=== PATIENT | female | born 1990 | race Caucasian/White ===

== ENCOUNTER 2016-04-04 17:15 | Outpatient (CLI) | payer MEDICAID ==
[~2016-04-04] VITALS: Ht 154.9 cm; Wt 88.2 kg
[~2016-04-04 17:15] MED LIST: AC500T PO; ACET1TAB43 PO; ACHYD1T PO; BC PILL PO; BCP; CEFU250S PO; CEPH500C PO; HYDR-707 PO; HYOS0.1216 PO; IBP800T PO; IBUP-1780 PO; MUPI1OIN5 NS; NITR-65 PO; OCP; ONDA-42 SL; ONDA8TAB13 PO; ONDAN4ODT PO; PENI500T PO; PNT40TEC PO; PREN-37 PO; PREN1TAB39 PO; PREN1TAB71 PO; PROM25TA14 PO
[2016-04-04 17:30] VITALS: BP 133/87
[2016-04-04] MEDS ORDERED: BETAMETHASONE ACE/NA PHOS 6 MG/ML (CELESTONE SOLUSPAN) ONE (18:50)
[2016-04-04] MEDS ORDERED: D5 LR IV SOLUTION 1,000 ML IV ONE (18:50)
[2016-04-04] MEDS ORDERED: BETAMETHASONE ACE/NA PHOS 6 MG/ML (CELESTONE SOLUSPAN) IM SCH (19:00)
[2016-04-04] MEDS: D5 LR IV SOLUTION 1,000 ML IV SCH ×2 (19:05→21:15)
[2016-04-04] MEDS ORDERED: CATHETER FLUSH 10 ML SYR IV PRN (19:15)
[2016-04-04 19:34] LABS: BASOPHILS % (AUTO) 0 % (0-10); EOSINOPHILS # (AUTO) 0.1 10^3/uL (0.0-0.3); EOSINOPHILS % (AUTO) 1 % (0-10); LYMPHOCYTES # (AUTO) 1.1 X 10^3 (1.0-4.0); LYMPHOCYTES % (AUTO) 14 % (12-44); MEAN CORPUSCULAR HEMOGLOBIN 34 PG (25-34); MEAN CORPUSCULAR HGB CONC 34 G/DL (32-36); MEAN CORPUSCULAR VOLUME 99 FL (80-99); MEAN PLATELET VOLUME 9.6 FL (7.4-10.4); MONOCYTES # (AUTO) 0.4 X 10^3 (0.0-1.0); MONOCYTES % (AUTO) 5 % (0-12); NEUTROPHILS # (AUTO) 6.5 X 10^3 (1.8-7.8); NEUTROPHILS % (AUTO) 80 % (42-75); PLATELET COUNT 254 10^3/uL (130-400); RED BLOOD COUNT 3.48 10^6/uL (4.35-5.85); RED CELL DISTRIBUTION WIDTH 12.6 % (10.0-14.5); WHITE BLOOD COUNT 8.2 10^3/uL (4.3-11.0)
[2016-04-04 19:35] VITALS: BP 129/90
[2016-04-04 22:02] VITALS: BP 129/71
[2016-04-05] MEDS: D5 LR IV SOLUTION 1,000 ML IV SCH ×2 (01:15→05:24)
[2016-04-05 01:17] VITALS: BP 121/66
[2016-04-05 05:16] VITALS: BP 130/70
[2016-04-05] MEDS ORDERED: FLU TRIvalent (5 YOA+) 2016-17 (AFLURIA) 0.5 ML IM ONE (06:45)
--- NOTE | 2016-04-05 07:37 | History & Physical ---
History and Physical this patient is a 25-year-old white female with an EDC of 3 [phone] putting her at 32 weeks gestation. She presented with complaint of contractions pain and pressure. She was nubia 4-6 times an hour. She was hydrated and observed in her contractions have gradually resolved. Her cervix is shown no change since admission. She was given the first dose of 2 doses of betamethasone. She denies rupture membranes or bleeding. This morning she feels like her contractions have completely resolved. Allergies are none Medications are vitamins Past medical history, past surgical history, obstetric history, family history, and social histories are per the antepartum record HEENT exam is normal Neck is supple no lymphadenopathy no thyromegaly Abdomen is gravid soft nontender nondistended Streaming show clubbing or cyanosis. There is no Homans sign. Pelvic exam per the admitting nurse showed a cervix 3 cm dilated that showed no change on serial exams. Vital Signs Date Time Temp Pulse Resp B/P Pulse Ox O2 Delivery O2 Flow Rate FiO2 04/05/16 05:16 96.8 87 20 130/70 Room Air 04/05/16 01:17 97.4 90 20 121/66 Room Air 04/04/16 22:02 90 20 129/71 Room Air 04/04/16 19:35 97.9 90 20 129/90 Room Air 04/04/16 17:30 99.2 103 20 133/87 Room Air vital signs are stable. Patient afebrile. monitor shows normal heart rate pattern with one episode of a deceleration associated with contraction. Has not recurred. Otherwise the heart rate pattern is normal reassuring and reactive. There frequent cells there are no D cells and the one mentioned.. Assessment and plan 32 week with contractions/ labor that has now resolved. We will allow discharge home with clinic. Patient precautions for return to clinic for any signs symptoms and indications of return of labor labor at 32 weeks gestation Allergies and Home Medications Allergies Coded Allergies: No Known Drug Allergies (Verified , 09/03/06) Home Medications Nitrofurantoin Monohyd/M-Cryst 100 Mg Capsule 1 TAB PO BID (Reported) Vit/Iron Fumarate/FA 1 Each Tablet 1 EACH PO DAILY (Reported) ANISHA HERNÁNDEZ MD Apr 05, 2016 7:37 am
== END 2016-04-05 07:54 | disposition home or self-care (01) ==
LOC: LDRP 17:15 → WSo 17:15
PROVIDERS: ATTEND Obstetrics & Gynecology
DX: O60.03 Preterm labor without delivery, third trimester (principal); Z3A.32 32 weeks gestation of pregnancy; Z23 Encounter for immunization
CPT/HCPCS: 36415; 85025; 90471; 96360; 96361; 96372; 99214

== ENCOUNTER 2016-04-05 19:52 | Outpatient (CLI) | payer MEDICAID ==
[2016-04-05] MEDS ORDERED: BETAMETHASONE ACE/NA PHOS 6 MG/ML (CELESTONE SOLUSPAN) ONE (19:53)
[2016-04-05] MEDS ORDERED: BETAMETHASONE ACE/NA PHOS 6 MG/ML (CELESTONE SOLUSPAN) IM SCH (20:00)
--- NOTE | 2016-04-08 10:58 | Physician Query-Final Dx ---
RAYA SILVA 04/08/16 1058: Clinic Account Progress/Dx Physician Query: Please give diagnosis Date of Service Apr 05, 2016 at 19:52 ANISHA HERNÁNDEZ MD 04/08/16 1159: Clinic Account Progress/Dx DIAGNOSIS: Diagnosis labor RAYA SILVA Apr 08, 2016 10:58 ANISHA HERNÁNDEZ MD Apr 08, 2016 11:59
== END 2016-04-05 20:00 | disposition home or self-care (01) ==
LOC: WSo 19:52
PROVIDERS: ATTEND Obstetrics & Gynecology
DX: O60.00 Preterm labor without delivery, unspecified trimester (principal)
CPT/HCPCS: 96372

== ENCOUNTER 2016-04-14 13:49 | Outpatient (CLI) | payer MEDICAID ==
[~2016-04-14] VITALS: Ht 154.9 cm; Wt 90.7 kg
[2016-04-14 14:00] VITALS: BP 119/66
[2016-04-14 17:40] VITALS: BP 108/67
--- NOTE | 2016-04-15 12:00 | Physician Query-Final Dx ---
RAYA SILVA 04/15/16 1200: Clinic Account Progress/Dx Physician Query: Please give diagnosis Date of Service Apr 14, 2016 at 13:49 ANISHA HERNÁNDEZ MD 04/16/16 1320: Clinic Account Progress/Dx DIAGNOSIS: Diagnosis false labor RAYA SILVA Apr 15, 2016 12:00 ANISHA HERNÁNDEZ MD Apr 16, 2016 13:20
[2016-05-08] MEDS ORDERED: IBUP-1780 PO (07:45)
[2016-05-08] MEDS ORDERED: DOCU100C37 PO (07:45)
[2016-05-08] MEDS ORDERED: OXYC-465 PO (07:45)
== END 2016-04-14 18:10 | disposition home or self-care (01) ==
LOC: LDRP 13:49 → WSo 13:49
PROVIDERS: ATTEND Obstetrics & Gynecology
DX: O47.03 False labor before 37 completed weeks of gestation, third trimester (principal); Z3A.33 33 weeks gestation of pregnancy
CPT/HCPCS: 99214

== ENCOUNTER 2016-05-04 19:55 | Outpatient (CLI) | payer MEDICAID ==
[~2016-05-04] VITALS: Ht 154.9 cm; Wt 95.7 kg
[2016-05-04 19:55] VITALS: BP 117/70
--- NOTE | 2016-05-06 15:16 | Physician Query-Final Dx ---
RAYA SILVA 05/06/16 1516: Clinic Account Progress/Dx Physician Query: Please give diagnosis Date of Service May 04, 2016 at 19:55 ANISHA HERNÁNDEZ MD 05/07/16 0824: Clinic Account Progress/Dx DIAGNOSIS: Diagnosis false labor RAYA SILVA May 06, 2016 15:16 ANISHA HERNÁNDEZ MD May 07, 2016 08:24
== END 2016-05-04 20:31 | disposition home or self-care (01) ==
LOC: LDRP 19:55 → WSo 19:55
PROVIDERS: ATTEND Obstetrics & Gynecology
DX: O47.03 False labor before 37 completed weeks of gestation, third trimester (principal); Z3A.36 36 weeks gestation of pregnancy
CPT/HCPCS: 99214

== ENCOUNTER 2016-05-07 16:10 | Inpatient (IN) | payer MEDICAID ==
[2016-05-07] VITALS (33 sets, daily range): BP systolic 88–147; BP diastolic 53–89
[~2016-05-07] VITALS: Ht 154.9 cm; Wt 95.7 kg
[2016-05-07] MEDS ORDERED: D5 LR IV SOLUTION 1,000 ML IV SCH (16:17)
[2016-05-07] MEDS ORDERED: MINERAL OIL CONCENTRATE 99.9% 15 ML UDC TOP PRN (16:30)
[2016-05-07] MEDS ORDERED: OXYTOCIN/NORMAL SALINE 500 ML IV SCH ×3 (16:30→16:48)
--- NOTE | 2016-05-07 16:54 | History & Physical ---
History and Physical this patient is a 25-year-old white female with a due date of 2716 seen in my clinic on this date and found to have nitrazine positive and fern positive discharge consistent with PROM. She's indicates that she feels less she been leaking for several days. She denies bleeding. She had a GBS negative culture after 35 weeks gestation. She does feel occasional contractions that seem to be increasing and lots of pressure. Cervical exam in clinic was between 45 cm dilated 70 percent effaced -1-0 station vertex presentation that was a palpable fore bag although there was pooling in the vaginal vault that was nitrazine positive and fern positive as well. Allergies are none Medications are vitamins Past medical history, past surgical history, obstetric history, family history, and social histories are per the antepartum record HEENT exam is normal Neck is supple no lymphadenopathy and no thyromegaly Abdomen is gravid soft nontender nondistended Extremities show clubbing cyanosis. There is no Homans sign. There is some pretibial pitting edema that is normal. Pelvic exam in clinic showed a cervix 4-5 cm dilated 70 percent efface 0 to -1 station with a palpable fore bag. Nitrazine was positive of the pooling in the vaginal vault on sterile speculum exam and fern was test was positive as well. Assessment and plan term at 37 weeks and 1 day in a patient with PROM of of uncertain duration. She is now admitted and will be managed in labor with anticipation of a vaginal delivery. 37-1/7 weeks gestation with PROM of uncertain duration, Allergies and Home Medications Allergies Coded Allergies: No Known Drug Allergies (Verified , 09/03/06) Home Medications Vit/Iron Fumarate/FA 1 Each Tablet 1 EACH PO DAILY (Reported) ANISHA HERNÁNDEZ MD May 07, 2016 4:54 pm
[2016-05-07] MEDS: D5 LR IV SOLUTION 1,000 ML IV SCH (17:00)
[2016-05-07] MEDS ORDERED: TETANUS,DIPTH,PERTUSS P/F (BOOSTRIX) 0.5 ML VIAL IM ONE (17:00)
[2016-05-07] MEDS ORDERED: MEASLES,MUMPS,RUBELLA 1 EA INJ SC ONE (17:00)
[2016-05-07 17:07] LABS: BASOPHILS % (AUTO) 0 % (0-10); EOSINOPHILS # (AUTO) 0.1 10^3/uL (0.0-0.3); EOSINOPHILS % (AUTO) 1 % (0-10); LYMPHOCYTES # (AUTO) 1.6 X 10^3 (1.0-4.0); LYMPHOCYTES % (AUTO) 18 % (12-44); MEAN CORPUSCULAR HEMOGLOBIN 33 PG (25-34); MEAN CORPUSCULAR HGB CONC 34 G/DL (32-36); MEAN CORPUSCULAR VOLUME 98 FL (80-99); MEAN PLATELET VOLUME 9.9 FL (7.4-10.4); MONOCYTES # (AUTO) 0.9 X 10^3 (0.0-1.0); MONOCYTES % (AUTO) 10 % (0-12); NEUTROPHILS # (AUTO) 6.5 X 10^3 (1.8-7.8); NEUTROPHILS % (AUTO) 71 % (42-75); PLATELET COUNT 290 10^3/uL (130-400); RED BLOOD COUNT 3.71 10^6/uL (4.35-5.85); RED CELL DISTRIBUTION WIDTH 12.7 % (10.0-14.5); WHITE BLOOD COUNT 9.1 10^3/uL (4.3-11.0)
[2016-05-07] MEDS ORDERED: fentaNYL INJECTION 100 MCG/2 ML AMP ONE (17:11)
[2016-05-07] MEDS ORDERED: LACTATED RINGERS 1,000 ML IV ONE ×3 (17:11→19:33)
[2016-05-07] MEDS ORDERED: BUPIVACAINE 0.25% 30 ML (SENSORCAINE) VIAL ONE (17:12)
[2016-05-07] MEDS ORDERED: LIDOCAINE PF 2% 10 ML (XYLOCAINE) AMP ONE (17:12)
[2016-05-07] MEDS ORDERED: SUFENTA 0.6MCG/ML BUPIVA 0.125 100 ML ONE (17:12)
[2016-05-07] MEDS ORDERED: AMPICILLIN INJECTION 2,000 MG in NS (IVPB) 50 ML IV ONE (17:30)
[2016-05-07] MEDS ORDERED: AMPICILLIN 2000 MG INJECTION (IM/IV) ONE (17:50)
[2016-05-07] MEDS ORDERED: NALOXONE 0.4 MG/ML 1 ML (NARCAN) VIAL IV PRN (19:45)
[2016-05-07] MEDS ORDERED: BUPIVACAINE 0.25% 30 ML (SENSORCAINE) VIAL INJ ONE (19:45)
[2016-05-07] MEDS ORDERED: ONDANSETRON 4 MG/2 ML (SDV) Z0FRAN IV PRN (19:45)
[2016-05-07] MEDS ORDERED: fentaNYL INJECTION 100 MCG/2 ML AMP INJ ONE (19:45)
[2016-05-07] MEDS ORDERED: EPIDURAL (SUFENTA 0.6MCG/ML BUPIVA 0.125%) 100 ML BAG EPI PRN (19:45)
[2016-05-07] MEDS ORDERED: LIDOCAINE/EPI 1%-1:200,000 (XYLOCAINE) 30 ML VIAL ONE (20:49)
[2016-05-07] MEDS ORDERED: CATHETER FLUSH 10 ML SYR IV SCH (22:00)
[2016-05-07] MEDS: BENZOCAINE/MENTHOL (DERMOPLAST) 56 ML CAN TP PRN (23:24)
[2016-05-07] MEDS: KETOROLAC 30 MG/ML VIAL IV SCH (23:24)
[2016-05-07] MEDS: DOCUSATE SODIUM 100 MG (COLACE) CAP PO SCH (23:24)
[2016-05-08] MEDS: D5 LR IV SOLUTION 1,000 ML IV SCH (01:40)
[2016-05-08] MEDS: oxyCODONE/APAP 10/325MG (PERCOCET 10) TABLET PO PRN ×2 (02:33→07:57)
[2016-05-08 04:45] VITALS: BP 110/71
[2016-05-08] MEDS ORDERED: IBUPROFEN 800 MG (MOTRIN) TAB PO ONE ×2 (06:43→12:20)
[2016-05-08] MEDS: IBUPROFEN 800 MG (MOTRIN) TAB PO SCH ×4 (06:49→23:54)
[2016-05-08] MEDS: KETOROLAC 30 MG/ML VIAL IV SCH ×2 (06:49→07:22)
--- NOTE | 2016-05-08 07:44 | Progress Note-Standard ---
Standard Progress Note Progress Notes/Assess & Plan Progress/Assessment & Plan this patient is without complaint. She is ambulating, voiding, tolerating by mouth well, denies chest pain, denies shortness of breath, denies nausea vomiting, has good pain control. Vital Signs Date Time Temp Pulse Resp B/P Pulse Ox O2 Delivery O2 Flow Rate FiO2 05/08/16 04:45 97.8 88 20 110/71 97 Room Air 05/07/16 23:24 97.6 95 20 108/73 96 Room Air 05/07/16 22:50 98.1 98 20 98/63 97 Room Air 05/07/16 22:21 104 20 93/55 Room Air 05/07/16 22:20 98.6 113 20 88/56 Room Air 05/07/16 22:00 104 20 105/57 Room Air 05/07/16 21:45 98.4 107 20 115/55 97 Room Air 05/07/16 21:30 98.6 114 20 126/59 97 Room Air 05/07/16 21:17 117 20 141/58 Room Air 05/07/16 21:00 109 20 124/68 Room Air 05/07/16 20:45 100 20 113/53 Room Air 05/07/16 20:30 98.7 108 20 114/89 97 Room Air 05/07/16 20:15 92 20 110/59 100 Room Air 05/07/16 20:00 97.9 85 20 119/65 97 Room Air 05/07/16 19:44 88 20 119/63 97 Room Air 05/07/16 19:41 92 20 111/64 96 Room Air 05/07/16 19:38 82 20 112/62 96 Room Air 05/07/16 19:35 88 20 112/59 98 Room Air 05/07/16 19:32 87 20 105/56 96 Room Air 05/07/16 19:29 96 20 129/61 96 Room Air 05/07/16 19:26 107 20 135/60 97 Room Air 05/07/16 19:23 125 20 131/58 97 Room Air 05/07/16 19:20 108 20 147/70 95 Room Air 05/07/16 19:17 112 20 130/75 95 Room Air 05/07/16 19:14 114 20 127/80 95 Room Air 05/07/16 19:11 116 20 125/82 97 Room Air 05/07/16 18:45 95 20 102/56 Room Air 05/07/16 18:30 96 20 108/55 Room Air 05/07/16 18:15 101 20 144/78 Room Air 05/07/16 18:00 102 20 107/59 Room Air 05/07/16 17:45 101 20 118/72 Room Air 05/07/16 17:30 96 20 124/63 Room Air 05/07/16 17:15 106 20 110/65 Room Air 05/07/16 17:00 96 20 119/69 Room Air I & O 05/08/16 07:00 Output Total 0 ml Balance 0 ml vital signs are stable. Patient afebrile. Fundus is firm below the umbilicus nontender. Extreme show no clubbing cyanosis. There is no Homans sign. Assessment and plan day number 1 status post return spontaneous vaginal delivery doing well. Plan is for discharge home tomorrow ANISHA HERNÁNDEZ MD May 08, 2016 7:44 am
[2016-05-08] MEDS ORDERED: OXYC-465 PO (07:45)
[2016-05-08] MEDS ORDERED: DOCU100C37 PO (07:45)
[2016-05-08] MEDS ORDERED: IBUP-1780 PO (07:45)
--- NOTE | 2016-05-08 07:46 | Discharge Instructions ---
Discharge Instructions Discharge Medications New, Converted or Re-Newed RX: RX on Chart Patient Instructions Patient Instructions: as directed Return to The Hospital For: as directed Activity & Diet Discharge Diet: No Restrictions Activity as Tolerated: No Orders-Post D/C & Referrals Follow Up Appt: Call to make follow up appt. for patient in 4 weeks. Activity Per routine post vaginal delivery instructions. Please call in RX to patient pharmacy. Diet as tolerated Patient may shower or tub bathe as desired. ANISHA HERNÁNDEZ MD May 08, 2016 7:46 am
[2016-05-08 08:05] VITALS: BP 110/68
[2016-05-08] MEDS: DOCUSATE SODIUM 100 MG (COLACE) CAP PO SCH (08:06)
[2016-05-08 12:15] VITALS: BP 110/79
[2016-05-08 12:50] VITALS: BP 110/79
[2016-05-08 19:27] VITALS: BP 116/87
[2016-05-09 03:00] VITALS: BP 88/42
[2016-05-09] MEDS: IBUPROFEN 800 MG (MOTRIN) TAB PO SCH ×3 (05:58→17:03)
--- NOTE | 2016-05-09 07:44 | Progress Note-Standard ---
Standard Progress Note Progress Notes/Assess & Plan Progress/Assessment & Plan this patient is without complaint. She is ambulating, voiding, tolerating by mouth well, denies chest pain, denies shortness of breath, denies nausea vomiting, has good pain control. Vital Signs Date Time Temp Pulse Resp B/P Pulse Ox O2 Delivery O2 Flow Rate FiO2 05/08/16 04:45 97.8 88 20 110/71 97 Room Air 05/07/16 23:24 97.6 95 20 108/73 96 Room Air 05/07/16 22:50 98.1 98 20 98/63 97 Room Air 05/07/16 22:21 104 20 93/55 Room Air 05/07/16 22:20 98.6 113 20 88/56 Room Air 05/07/16 22:00 104 20 105/57 Room Air 05/07/16 21:45 98.4 107 20 115/55 97 Room Air 05/07/16 21:30 98.6 114 20 126/59 97 Room Air 05/07/16 21:17 117 20 141/58 Room Air 05/07/16 21:00 109 20 124/68 Room Air 05/07/16 20:45 100 20 113/53 Room Air 05/07/16 20:30 98.7 108 20 114/89 97 Room Air 05/07/16 20:15 92 20 110/59 100 Room Air 05/07/16 20:00 97.9 85 20 119/65 97 Room Air 05/07/16 19:44 88 20 119/63 97 Room Air 05/07/16 19:41 92 20 111/64 96 Room Air 05/07/16 19:38 82 20 112/62 96 Room Air 05/07/16 19:35 88 20 112/59 98 Room Air 05/07/16 19:32 87 20 105/56 96 Room Air 05/07/16 19:29 96 20 129/61 96 Room Air 05/07/16 19:26 107 20 135/60 97 Room Air 05/07/16 19:23 125 20 131/58 97 Room Air 05/07/16 19:20 108 20 147/70 95 Room Air 05/07/16 19:17 112 20 130/75 95 Room Air 05/07/16 19:14 114 20 127/80 95 Room Air 05/07/16 19:11 116 20 125/82 97 Room Air 05/07/16 18:45 95 20 102/56 Room Air 05/07/16 18:30 96 20 108/55 Room Air 05/07/16 18:15 101 20 144/78 Room Air 05/07/16 18:00 102 20 107/59 Room Air 05/07/16 17:45 101 20 118/72 Room Air 05/07/16 17:30 96 20 124/63 Room Air 05/07/16 17:15 106 20 110/65 Room Air 05/07/16 17:00 96 20 119/69 Room Air I & O 05/08/16 07:00 Output Total 0 ml Balance 0 ml vital signs are stable. Patient afebrile. Fundus is firm below the umbilicus nontender. Extreme show no clubbing cyanosis. There is no Homans sign. Assessment and plan day number 1 status post return spontaneous vaginal delivery doing well. Plan is for discharge home tomorrow May 09, 2016 Patient is without complaint. She is ambulating, voiding, tolerating by mouth well, has good pain control, and is requesting discharge home. Vital Signs Date Time Temp Pulse Resp B/P Pulse Ox O2 Delivery O2 Flow Rate FiO2 05/09/16 03:00 97.6 64 20 88/42 96 Room Air 05/08/16 19:27 98.4 71 20 116/87 97 Room Air 05/08/16 12:15 98.1 98 20 110/79 Room Air 05/08/16 12:15 98.1 98 20 110/79 Room Air 05/08/16 08:05 98.4 85 20 110/68 97 Room Air vital signs are stable. Patient is afebrile. Fundus is firm below the umbilicus and nontender. Extreme show clubbing cyanosis. There is no Homans sign. Assessment and plan day number 2 status post term spontaneous vaginal delivery. Plan is for discharge home with follow-up in clinic. If baby is not discharged patient will room in. Final Diagnosis 37-1/7 week spontaneous vaginal delivery ANISHA HERNÁNDEZ MD May 09, 2016 7:44 am
[2016-05-09 09:10] VITALS: BP 131/65
[2016-05-09] MEDS: DOCUSATE SODIUM 100 MG (COLACE) CAP PO SCH (09:18)
--- NOTE | 2016-05-09 09:36 | PROCEDURE REPORT ---
PROCEDURE PHYSICIAN: ANISHA HERNÁNDEZ DATE OF PROCEDURE: 05/07/2016 DATE OF DICTATION: 05/07/2016 The patient delivered by term spontaneous vaginal delivery of a viable female infant with Apgars of 8 and 9 at one and five minutes respectfully. Weight was 6 pounds 13 ounces. time was 2106. The patient delivered over a midline episiotomy that was performed at her request when she had pushed the baby down to the perineum and peritoneum would stretched no further and she was beginning to have tears and splits bilaterally, periurethrally. The episiotomy was performed under local and the baby delivered almost spontaneously after that. The was bulb suctioned on delivery of the head and again on completion of delivery. The cord when relatively pulseless, was doubly clamped, father cut the cord. The baby was passed to mom's abdomen. The baby had Apgars of 8 and 9 at one and five minutes respectfully, it was a female. time was 2106 and weight was 6 pounds 13 ounces. The cord bloods were obtained including a cord blood gas secondary to patient's history of unsure duration of membrane rupture. That is pending. Placenta delivered spontaneously Osorio. It was normal with a three-vessel cord and it was sent to pathology for permanent section secondary to indeterminate duration of rupture membranes. The perineum and vagina, rectum and cervix were examined and found intact except for the midline episiotomy that was repaired with a single suture of 3-0 Vicryl. Sponge and needle counts were correct on completion of delivery and repair. Estimated blood loss was around 150 mL. The patient tolerated the delivery and repair well and remained in the LDR to recover; the baby remained with the mom. Job ID: [id number] Dictated Date: 05/07/2016 21:24:24 Stable Hand Date: 05/09/2016 09:31:42 / wang
[2016-05-09] MEDS: BENZOCAINE/MENTHOL (DERMOPLAST) 56 ML CAN TP PRN (11:19)
[2016-05-09 16:55] VITALS: BP 129/85
[2016-05-09] MEDS ORDERED: TETANUS,DIPTH,PERTUSS P/F (BOOSTRIX) 0.5 ML VIAL IM ONE (16:56)
== END 2016-05-09 17:08 | disposition home or self-care (01) | DRG 775 ==
LOC: LDRP 16:10
PROVIDERS: ADMIT Obstetrics & Gynecology; ATTEND Obstetrics & Gynecology
PROC: 0W8NXZZ Division of Female Perineum, External Approach (ICD-10-PCS; principal; 2016-05-07)
PROC: 10E0XZZ Delivery of Products of Conception, External Approach (ICD-10-PCS; 2016-05-07)
DX: O42.92 Full-term premature rupture of membranes, unspecified as to length of time between rupture and onset of labor (principal); Z3A.37 37 weeks gestation of pregnancy; Z23 Encounter for immunization; Z37.0 Single live birth
CPT/HCPCS: 36415; 85025; 86850; 86900; 86901; 88307; 90715

== ENCOUNTER 2017-02-06 05:28 | Outpatient (CLI) | payer MEDICAID ==
[~2017-02-06] VITALS: Ht 154.9 cm; Wt 88.9 kg
[~2017-02-06 05:28] MED LIST changes: +DOCU100C37 PO; +OXYC-465 PO
[2017-02-06] MEDS ORDERED: FLUO20CA42 PO (14:06)
[2017-02-06] MEDS ORDERED: NORG1TAB14 PO (14:06)
== END 2017-02-06 14:26 ==
LOC: PREOP 05:28
PROVIDERS: ATTEND Obstetrics & Gynecology
DX: Z01.818 Encounter for other preprocedural examination (principal); N93.8 Other specified abnormal uterine and vaginal bleeding; D64.9 Anemia, unspecified

== ENCOUNTER 2017-02-12 11:11 | Day surgery (SDC) | payer SELFPAY ==
[~2017-02-12] VITALS: Ht 154.9 cm; Wt 88.9 kg
[~2017-02-12 11:11] MED LIST changes: +FLUO20CA42 PO; +NORG1TAB14 PO
--- OUTSIDE RECORDS SUMMARY | 2017-02-12 11:15 | XMS REPORT ---
Author Author KATELYN OCONNELL [facility] e[employer] Address Unknown Phone Unavailable Care Team Providers Care [employer] Packages Leak Tester Name Role Phone KATELYN OCONNELL CP Unavailable Allergies No Known Allergies Problems Problem Type Condition ICD-9 Code Onset Dates Condition Status Problem Rash and other nonspecific skin eruption 782.1 Active Assessment Dental examination V72.2 Active Problem Influenza with other respiratory manifestations 487.1 Active Problem Need for prophylactic vaccination and inoculation, Influenza V04.81 Active Problem Pediatric pre- visit for expectant mother V65.11 Active Problem Unspecified disorder of liver 573.9 Active Problem examination or test, unconfirmed V72.40 Active Problem Acute sinusitis, unspecified 461.9 Active Problem Unspecified local infection of skin and subcutaneous tissue 686.9 Active Medications No Known Medications Procedures Procedure Coding System Code Date INTRAORL-PERIAPICAL 1 FILM 60536 CPT-4 D0220 September 20, 2014 LTD ORAL EVALUATION - PROBLEM FOCUS CPT-4 D0140 September 20, 2014 Results No Known Results Summary Purpose eClinicalWorks Submission
--- OUTSIDE RECORDS SUMMARY | 2017-02-12 11:15 | XMS REPORT ---
Author Author SEDA Salgado [facility] Address Unknown Care Team Providers Care Organizational Consultant Name Role Phone SEDA Salgado Unavailable PROBLEMS Unknown Problems ALLERGIES Substance Reaction Event Type Date Status N.K.D.A. Unknown Non Drug Allergy Apr, Unknown SOCIAL HISTORY No smoking Hx information available PLAN OF CARE Activity Details Follow Up prn Reason:all upper teeth-fillings 1 hr. VITAL SIGNS Height 61 in 2016-04-03 Blood pressure systolic 114 mmHg 2016-04-03 Blood pressure diastolic 71 mmHg 2016-04-03 MEDICATIONS Medication Instructions Dosage Frequency Start Date End Date Duration Status Active RESULTS No Results PROCEDURES Procedure Date Ordered Related Diagnosis Body Site RESIN COMPOS - 3 SURFACES ANTERIOR Apr 03, 2016 IMMUNIZATIONS No Known Immunizations
--- OUTSIDE RECORDS SUMMARY | 2017-02-12 11:15 | XMS REPORT ---
Author MAITE Pandey [facility] eClinical[employer] Address Unknown Phone Unavailable Care Team Providers Care Slitter Helper Name Role Phone MAITE HERNANDEZ CP Unavailable Allergies No Known Allergies Problems Problem Type Condition ICD-9 Code Onset Dates Condition Status Problem Rash and other nonspecific skin eruption 782.1 Active Assessment TDAP DX V06.1 Active Problem Influenza with other respiratory manifestations [...] Medications Procedures Procedure Coding System Code Date SINGLE IMMUNIZATION ADMIN CPT-4 22090 Oct 22, 2014 TDAP (BOOSTRIX) CPT-4 89281 Oct 22, 2014 Results No Known Results Immunizations Vaccine Administration Date TDAP (BOOSTRIX) Oct 22, 2014 Summary Purpose eClinicalWorks Submission
--- OUTSIDE RECORDS SUMMARY | 2017-02-12 11:15 | XMS REPORT ---
Author Author SUGEY NORTON [facility] eClinical[employer] Address Unknown Phone Unavailable Care Team Providers Care Splicer Helper Name Role Phone SUGEY NORTON CP Unavailable Allergies, Adverse Reactions, Alerts Substance Reaction Event Type N.K.D.A. Info Not Available Non Drug Allergy Problems Problem Type Condition Code Onset Dates Condition Status Problem Rash and other nonspecific skin eruption 782.1 Active Assessment Otitis media, unspecified, left ear H66.92 Active Problem Influenza with other respiratory manifestations 487.1 Active Problem Need for prophylactic vaccination and inoculation, Influenza V04.81 Active Problem Pediatric pre- visit for expectant mother V65.11 Active Problem Unspecified disorder of liver 573.9 Active Problem examination or test, unconfirmed V72.40 Active Problem Acute sinusitis, unspecified 461.9 Active Problem Unspecified local infection of skin and subcutaneous tissue 686.9 Active Medications Medication Code System Code Instructions Start Date End Date Status Dosage Augmentin [facility] [address]-96 875-125 MG Orally every 12 hrs Jan 04, 2015 Jan 14, 2015 1 tablet Ibuprofen [facility] 0 May 03, 2011 by Oral route Procedures Procedure Coding System Code Date Office Visit, Est Pt., Level 3 CPT-4 98950 Jan 04, 2015 Vital Signs Date/Time: Jan 04, 2015 Temperature 97.6 F Weight 186.7 lbs Height 61 in BMI 35.27 Index Blood Pressure Diastolic 72 mmHg Blood Pressure Systolic 115 mmHg Cardiac Monitoring Heart Rate 90 bpm Results No Known Results Summary Purpose eClinicalWorks Submission
--- OUTSIDE RECORDS SUMMARY | 2017-02-12 11:16 | XMS REPORT ---
Author SEDA Wiley [employer] Address Unknown Phone Unavailable Care Team Providers Care Green [employer] Marketing Analyst Name Role Phone SEDA MARQUEZ CP Unavailable Allergies, Adverse Reactions, Alerts Substance Reaction Event Type N.K.D.A. Info Not Available Non Drug Allergy Problems Problem Type Condition Code Onset Dates Condition Status Assessment Dental caries K02.9 Active Problem Rash and other nonspecific skin eruption 782.1 Active Assessment Dental examination Z01.20 Active Problem Influenza with other respiratory manifestations [...] Medications Procedures Procedure Coding System Code Date RESIN COMPOS - 2 SURFACES POSTERIOR CPT-4 D2392 Dec 07, 2015 SURG REMOVAL ERUPTED TOOTH CPT-4 D7210 Dec 07, 2015 RESIN COMPOS - 1 SURFACE POSTERIOR CPT-4 D2391 Dec 07, 2015 SURG REMOVAL ERUPTED TOOTH CPT-4 D7210 Dec 07, 2015 Vital Signs Date/Time: Dec 07, 2015 Blood Pressure Diastolic 79 mmHg Blood Pressure Systolic 122 mmHg Height 61 in Results No Known Results Summary Purpose eClinicalWorks Submission
--- OUTSIDE RECORDS SUMMARY | 2017-02-12 11:16 | XMS REPORT ---
Author SEDA Wiley [employer] Address Unknown Phone Unavailable Care Team Providers Care Helper/Driver Name Role Phone SEDA MARQUEZ CP Unavailable Allergies, Adverse Reactions, Alerts Substance Reaction Event Type N.K.D.A. Info Not Available Non Drug Allergy Problems Problem Type Condition Code Onset Dates Condition Status Problem Rash and other nonspecific skin eruption 782.1 Active Assessment Dental caries K02.9 Active Problem Influenza with other respiratory manifestations [...] Instructions Start Date End Date Status Dosage [facility] [id number] not defined Procedures Procedure Coding System Code Date EXTRAC ERUPTED TOOTH/EXPOSED ROOT CPT-4 D7140 Dec 27, 2015 Vital Signs Date/Time: Dec 27, 2015 Blood Pressure Diastolic 75 mmHg Blood Pressure Systolic 124 mmHg Height 61 in Results No Known Results Summary Purpose eClinicalWorks Submission
--- OUTSIDE RECORDS SUMMARY | 2017-02-12 11:16 | XMS REPORT ---
Author Author RAYNA RUIZ [facility] Address [address] [place] [address] Care Team Providers Care Transporter Driver Name Role Phone RAYNA RUIZ Unavailable PROBLEMS Unknown Problems ALLERGIES No Known Allergies SOCIAL HISTORY Never Assessed PLAN OF CARE VITAL SIGNS Height 61 in 2016-07-24 Weight 200.8 lbs 2016-07-24 Temperature 98.1 degrees Fahrenheit 2016-07-24 Heart Rate 80 bpm 2016-07-24 Respiratory Rate 20 2016-07-24 BMI 37.94 kg/m2 2016-07-24 Blood pressure systolic 130 mmHg 2016-07-24 Blood pressure diastolic 84 mmHg 2016-07-24 MEDICATIONS Medication Instructions Dosage Frequency Start Date End Date Duration Status Amoxicillin 500 mg Orally 3 times a day 1 capsule 8h July, Aug, 10 day(s) Active RESULTS No Results PROCEDURES No Known procedures IMMUNIZATIONS No Known Immunizations MEDICAL (GENERAL) HISTORY Type Description Date Surgical History cholecystectomy Surgical History D & C Surgical History tubal ligation 05/2016 Surgical History tubaligation
--- OUTSIDE RECORDS SUMMARY | 2017-02-12 11:16 | XMS REPORT ---
Author Author MEENAKSHI RODRÍGUEZ Organization [employer] Address Unknown Phone Unavailable Care Team Providers Care [employer] Delivery Driver Name Role Phone MEENAKSHI RODRÍGUEZ CP Unavailable Allergies, Adverse Reactions, Alerts Substance Reaction Event Type N.K.D.A. Info Not Available Non Drug Allergy Problems Problem Type Condition Code Onset Dates Condition Status Assessment Left ear pain H92.02 Active Problem Rash and other nonspecific skin eruption 782.1 Active Assessment Viral pharyngitis J02.9 Active Problem Influenza with other respiratory manifestations [...] Instructions Start Date End Date Status Dosage Ibuprofen [facility] [address]-62 200 MG Orally every 6 hrs 1 tablet as needed Procedures Procedure Coding System Code Date Office Visit, Est Pt., Level 2 CPT-4 53299 September 22, 2015 Vital Signs Date/Time: September 22, 2015 Cardiac Monitoring Heart Rate 100 bpm Weight 201.2 lbs Height 61 in Blood Pressure Diastolic 72 mmHg Blood Pressure Systolic 118 mmHg Results No Known Results Summary Purpose eClinicalWorks Submission
--- OUTSIDE RECORDS SUMMARY | 2017-02-12 11:16 | XMS REPORT ---
Author SEDA Wiley [employer] Address Unknown Phone Unavailable Care Team Providers Care Log Preparer Name Role Phone SEDA MARQUEZ CP Unavailable Allergies No Known Allergies Problems Problem Type Condition Code Onset Dates [...] Medications Procedures Procedure Coding System Code Date Billing Notes on claim CPT-4 EC109 Dec 12, 2015 Results No Known Results Summary Purpose [employer] Submission
--- OUTSIDE RECORDS SUMMARY | 2017-02-12 11:16 | XMS REPORT ---
Author Author OSIEL ARENAS Organization [employer] Address Unknown Phone Unavailable Care Team Providers Care Checkout Supervisor Name Role Phone OSIEL ARENAS CP Unavailable Allergies No Known Allergies Problems [...] Coding System Code Date INTRAORL-PERIAPICAL 1 FILM 11240 CPT-4 D0220 July 13, 2014 BITEWING - SINGLE FILM CPT-4 D0270 July 13, 2014 LTD ORAL EVALUATION - PROBLEM FOCUS CPT-4 D0140 July 13, 2014 SURG REMOVAL ERUPTED TOOTH CPT-4 D7210 July 13, 2014 Results No Known Results Summary Purpose eClinicalWorks Submission
--- OUTSIDE RECORDS SUMMARY | 2017-02-12 11:16 | XMS REPORT ---
Author Author SEDA MARQUEZ [facility] Address Unknown Care Team Providers Care Contract Programmer Name Role Phone SULEMANSEDA ENG Unavailable PROBLEMS Type Condition ICD9-CM Code QMS73-IM Code Onset Dates Condition Status SNOMED Code Assessment Dental examination Z01.20 Nov, Active 825870184 Problem examination or test, unconfirmed V72.40 Active 739852735 Problem Rash and other nonspecific skin eruption 782.1 Active 621997984 Problem Pediatric pre- visit for expectant mother V65.11 Active Problem Influenza with other respiratory manifestations 487.1 Active 8365284 Problem Unspecified local infection of skin and subcutaneous tissue 686.9 Active 96642443 Problem Unspecified disorder of liver 573.9 Active 190787378 Problem Need for prophylactic vaccination and inoculation, Influenza V04.81 Active 821359944 Problem Acute sinusitis, unspecified 461.9 Active 16707143 ALLERGIES Substance Reaction Event Type Date Status N.K.D.A. Unknown Non Drug Allergy Nov, Unknown SOCIAL HISTORY No smoking Hx information available PLAN OF CARE VITAL SIGNS Height 61 in 2015-11-15 Blood pressure systolic 143 mmHg 2015-11-15 Blood pressure diastolic 94 mmHg 2015-11-15 MEDICATIONS Medication Instructions Dosage Frequency Start Date End Date Duration Status [place] 5-325 MG Orally every 6 hrs 1 tablet as needed 6h Nov, Nov, 4 days Active Amoxicillin 500 MG Orally 4 Times a Day 1 capsule 6h Nov, Nov, 7 days Active RESULTS No Results PROCEDURES Procedure Date Ordered Related Diagnosis Body Site COMP ORAL EVALUATION - NEW/EST PT Nov 15, 2015 BITEWINGS - FOUR FILMS Nov 15, 2015 PANORAMIC FILM SEE ALSO CODE 53998 Nov 15, 2015 IMMUNIZATIONS No Known Immunizations
--- OUTSIDE RECORDS SUMMARY | 2017-02-12 11:16 | XMS REPORT ---
Author Author KATELYN OCONNELL [facility] eClinicalWorks Address Unknown Phone Unavailable Care Team Providers Care Bromination Equipment Operator Name Role Phone KATELYN OCONNELL CP Unavailable [...] Medications Procedures Procedure Coding System Code Date Dental no charge CPT-4 D0099 Oct 03, 2014 Results No Known Results Summary Purpose [employer] Data Partnership[employer] Submission
--- OUTSIDE RECORDS SUMMARY | 2017-02-12 11:16 | XMS REPORT ---
Author Author GEOVANNY HOLT [facility] eClinicalWorks Address Unknown Phone Unavailable Care Team Providers Care Customer Success Advocate Name Role Phone GEOVANNY HOLT CP Unavailable Allergies, Adverse Reactions, Alerts Substance Reaction Event Type N.K.D.A. Info Not Available Non Drug Allergy Problems Problem Type Condition Code Onset Dates Condition Status Assessment Seasonal allergies J30.2 Active Problem Rash and other nonspecific skin eruption 782.1 Active Assessment Cough R05 Active Problem Influenza with other respiratory manifestations [...] Instructions Start Date End Date Status Dosage GuaiFENesin ER [facility] [address]-08 600 MG Orally every 12 hrs Jan 19, 2015 Jan 26, 2015 1 tablet as needed Claritin [facility] [address]-74 10 MG Orally Once a day Jan 19, 2015 Mar 20, 2015 1 tablet Procedures Procedure Coding System Code Date Office Visit, Est Pt., Level 3 CPT-4 82605 Jan 19, 2015 MEASURE BLOOD OXYGEN LEVEL CPT-4 39534 Jan 19, 2015 Vital Signs Date/Time: Jan 19, 2015 Temperature 97.4 F Weight 186.6 lbs Height 61 in Oximetry 97 % Blood Pressure Diastolic 72 mmHg Blood Pressure Systolic 112 mmHg Cardiac Monitoring Heart Rate 92 bpm BMI 35.25 Index Results No Known Results Summary Purpose eClinicalWorks Submission
--- OUTSIDE RECORDS SUMMARY | 2017-02-12 11:16 | XMS REPORT ---
Author SEDA [facility] eClinicalWorks Address Unknown Phone Unavailable Care Team Providers Care Wireless Sales Associate Name Role Phone SEDA MARQUEZ CP Unavailable [...] Instructions Start Date End Date Status Dosage Amoxicillin [facility] [address]-31 500 MG Orally four times a day Dec 21, 2015 Dec 28, 2015 1 tablet [facility] [address] not defined Acetaminophen-Codeine [facility] [address]-26 300-15 MG Orally every 6 hrs DecDec 25, 2015 1 tablet as needed Procedures Procedure Coding System Code Date INTRAORL-PERIAPICAL 1 FILM 93135 CPT-4 D0220 Dec 21, 2015 INTRAORL-PERIAPICAL EA ADD FILM CPT-4 D0230 Dec 21, 2015 LTD ORAL EVALUATION - PROBLEM FOCUS CPT-4 D0140 Dec 21, 2015 Vital Signs Date/Time: Dec 21, 2015 Blood Pressure Diastolic 71 mmHg Blood Pressure Systolic 124 mmHg Height 61 in Results No Known Results Summary Purpose eClinicalWorks Submission
[2017-02-12 11:18] VITALS: BP 130/96
[2017-02-12] MEDS ORDERED: LACTATED RINGERS 1,000 ML IV PRN (11:40)
[2017-02-12 11:42] LABS: BASOPHILS % (AUTO) 0 % (0-10); EOSINOPHILS # (AUTO) 0.1 10^3/uL (0.0-0.3); EOSINOPHILS % (AUTO) 2 % (0-10); LYMPHOCYTES # (AUTO) 1.8 X 10^3 (1.0-4.0); LYMPHOCYTES % (AUTO) 24 % (12-44); MEAN CORPUSCULAR HEMOGLOBIN 32 PG (25-34); MEAN CORPUSCULAR HGB CONC 33 G/DL (32-36); MEAN CORPUSCULAR VOLUME 98 FL (80-99); MEAN PLATELET VOLUME 9.3 FL (7.4-10.4); MONOCYTES # (AUTO) 0.7 X 10^3 (0.0-1.0); MONOCYTES % (AUTO) 9 % (0-12); NEUTROPHILS % (AUTO) 65 % (42-75); PLATELET COUNT 380 10^3/uL (130-400); RED BLOOD COUNT 4.34 10^6/uL (4.35-5.85); RED CELL DISTRIBUTION WIDTH 12.1 % (10.0-14.5); WHITE BLOOD COUNT 7.7 10^3/uL (4.3-11.0)
[2017-02-12] MEDS ORDERED: MIDAZOLAM 2 MG/2 ML (VERSED) VIAL ONE (11:55)
[2017-02-12] MEDS ORDERED: ONDANSETRON 4 MG/2 ML (SDV) Z0FRAN ONE (11:55)
[2017-02-12] MEDS ORDERED: LIDOCAINE PF 2% 5 ML (XYLOCAINE) VIAL ONE (11:55)
[2017-02-12] MEDS ORDERED: proPOfol 200 MG/20 ML (DIPRIVAN) VIAL IV ONE (11:55)
[2017-02-12] MEDS ORDERED: DEXAMETHASONE 10 MG/ML (DECADRON) 1 ML VIAL ONE (11:55)
[2017-02-12] MEDS ORDERED: SEVOFLURANE (ULTANE) 15 ML INHAL SOLN ONE (11:55)
[2017-02-12] MEDS ORDERED: fentaNYL INJECTION 100 MCG/2 ML AMP ONE (11:55)
[2017-02-12] MEDS ORDERED: ceFAZolin 1,000 MG (ANCEF) VIAL ONE (12:38)
[2017-02-12] MEDS ORDERED: NS (IVPB) 50 ML ONE (12:39)
[2017-02-12] MEDS ORDERED: ceFAZolin INJECTION 1,000 MG in NS (IVPB) 50 ML IV ONE (13:00)
--- NOTE | 2017-02-12 13:01 | Progress Note-Pre Operative ---
Pre-Operative Progress Note H&P Reviewed The H&P was reviewed, patient examined and no changes noted. Date Seen by Provider: Feb 12, 2017 Time Seen by Provider: 13:00 Date H&P Reviewed: Feb 12, 2017 Time H&P Reviewed: 13:00 Pre-Operative Diagnosis: dysfunctional uterine bleeding/endometrial polyp ANISHA HERNÁNDEZ MD Feb 12, 2017 1:01 pm
[2017-02-12] MEDS ORDERED: D5 LR IV SOLUTION 1,000 ML IV SCH (13:02)
--- NOTE | 2017-02-12 13:02 | Progress Note-Post Operative ---
Post-Operative Progess Note Surgeon (s)/Biology Manager (s) Surgeon ANISHA HERNÁNDEZ MD Biology Manager: none Pre-Operative Diagnosis dysfunctional uterine bleeding/endometrial polyp Post-Operative Diagnosis same with pathology pending Procedure & Operative Findings Date of Procedure 02/12/17 Procedure Performed/Findings hhysteroscopy with directed biopsy and D&C Anesthesia Type Gen. Estimated Blood Loss Estimated blood loss (mL): minimal Specimens/Packing Specimens Removed directed biopsy and endometrial curettings Packing: none ANISHA HERNÁNDEZ MD Feb 12, 2017 13:02
[2017-02-12] MEDS ORDERED: ceFAZolin 1 GM/NS 50 ML IVPB IV ONE ×2 (13:03)
[2017-02-12] MEDS ORDERED: OXYC-202 PO (13:04)
--- NOTE | 2017-02-12 13:05 | Discharge Instructions ---
Discharge Instructions Discharge Medications New, Converted or Re-Newed RX: RX on Chart Patient Instructions Patient Instructions: as directed Return to The Hospital For: as directed Activity & Diet Discharge Diet: No Restrictions Activity as Tolerated: Yes Orders-Post D/C & Referrals Follow Up Appt: Call to make follow up appt. for patient in 2 weeks. Activity: Rest for 24 hours, than as tolerated. Diet: As tolerated-Clear Liquids only if nauseated. May shower or tub bathe as desired. No driving for 24 hours, no alcoholic beverages for 24 hours, and nothing per vagina (no tampons, douching, or intercourse) for 2 weeks. Patient to return to the clinic as soon as possible for: Temperature greater than 101F, Severe Pain, Foul discharge from incision or vagina, Excessive Bleeding (more than a period). ANISHA HERNÁNDEZ MD Feb 12, 2017 1:05 pm
[2017-02-12] MEDS ORDERED: ONDANSETRON 4 MG/2 ML (SDV) Z0FRAN IVP PRN (13:15)
[2017-02-12] MEDS ORDERED: ESTROGENS CONJ IV 25 MG/5 ML (PREMARIN) VIAL IVP ONE (13:15)
[2017-02-12] MEDS ORDERED: MEPERIDINE (DEMEROL) INJ 100 MG/ML IM ONE (13:15)
[2017-02-12] MEDS ORDERED: WATER (STERILE) FOR INJ 10 ML BTL IV ONE (13:15)
[2017-02-12] MEDS ORDERED: PROMETHAZINE INJ 25 MG/ML (PHENERGAN) AMP IM ONE (13:15)
[2017-02-12] MEDS ORDERED: KETOROLAC 30 MG/ML VIAL IVP ONE (13:15)
[2017-02-12] MEDS ORDERED: oxyCODONE/APAP 10/325MG (PERCOCET 10) TABLET PO PRN (13:15)
[2017-02-12] MEDS ORDERED: morphine INJ 10 MG/ML 1ML (SYR OR VIAL) IVP PRN (13:45)
[2017-02-12 14:40] VITALS: BP 119/84
[2017-02-12 15:10] VITALS: BP 127/87
[2017-02-12 15:35] VITALS: BP 132/99
--- NOTE | 2017-02-12 15:47 | OPERATIVE REPORT ---
DATE OF SERVICE: 02/12/2017 PREOPERATIVE DIAGNOSES: Dysfunctional uterine bleeding and ultrasound showing likely endometrial polyp. POSTOPERATIVE DIAGNOSES: Dysfunctional uterine bleeding and ultrasound showing likely endometrial polyp postoperative with pathology pending. OPERATIVE PROCEDURE: Hysteroscopy with directed biopsy and D and C. OPERATIVE DESCRIPTION: With the patient in the supine position under satisfactory general anesthesia, she was repositioned in the dorsal lithotomy position in the Saeed stirrups and prepped and draped in the usual fashion for vaginal surgery. Weighted speculum placed in the posterior fornix of the vagina, cervix exposed and grasped anteriorly with single tooth tenaculum, the uterus was sounded to 9.5 cm with a sound. The cervix was then serially dilated with Darrius dilators to accommodate a hysteroscope, which was introduced and using LR as the distending medium, the endometrial cavity was examined. There were several small endometrial polypoid appearing lesions primarily on the anterior wall of the uterine cavity . Several of these were taken as direct sales representative biopsy and then endometrial cavity was curettaged sharply in all 4 quadrants to a good uterine cry. The directed biopsies were sent separately labeled as such. The curetting were sent labeled as endometrial curetting. The hysteroscope was reintroduced and the endometrial cavity examined. There was no significant bleeding. There was no remaining abnormal pathology. The hysteroscope was removed as was the tenaculum. There was some bleeding from the puncture site that was controlled with application of silver nitrate stick. With sponge and needle counts correct now and hemostasis assured the procedure was terminated. ESTIMATED BLOOD LOSS: Minimal. The patient was uneventfully awakened from her general anesthesia and transferred to the recovery room in stable condition with plans for discharge home PAR. A total of 700 mL of the LR was used and 700 mL was recovered. Job ID: [id number] DocumentID: [id number] Dictated Date: 02/12/2017 13:34:48 Assistant Women'S Rowing Coach Date: 02/12/2017 15:46:40 Dictated By: ANISHA HERNÁNDEZ MD MTDD
== END 2017-02-12 15:35 | disposition home or self-care (01) ==
LOC: SDC 11:11
PROVIDERS: ATTEND Obstetrics & Gynecology
DX: N84.0 Polyp of corpus uteri (principal); F32.9 Major depressive disorder, single episode, unspecified; Z79.899 Other long term (current) drug therapy
CPT/HCPCS: 36415; 84703; 85025; 87081

== ENCOUNTER 2018-10-06 17:36 | Emergency (ER) | payer BC ==
[~2018-10-06] VITALS: Ht 154.9 cm; Wt 70.8 kg
[~2018-10-06 17:36] MED LIST changes: +OXYC1TAB12 PO
--- NOTE | 2018-10-06 17:57 | NUR ---
Left thumb laceration and hand cleaned with NS and Surgical scrub.
[2018-10-06] MEDS ORDERED: TETANUS,DIPTH,PERTUSS P/F (BOOSTRIX) 0.5 ML VIAL IM ONE (18:15)
--- NOTE | 2018-10-06 18:31 | ED Integumentary General ---
General Chief Complaint: Laceration Stated Complaint: L HAND LAC Nursing Triage Note: Patient ambulatory to ER with complaint of left thumb laceration. Patient states she was opening a can of corn when the lid cut into her thumb. Source: patient Exam Limitations: no limitations History of Present Illness Date Seen by Provider: Oct 06, 2018 Time Seen by Provider: 18:15 Initial Comments 28-year-old female who presents to the emergency room with complaints of laceration to the left thumb while opening a metal can of corn. She has a 1 cm superficial laceration to the palmar surface of her left thumb. Timing/Duration: just prior to arrival Associated Symptoms: denies symptoms Allergies and Home Medications Allergies Coded Allergies: No Known Drug Allergies (Verified , 09/03/06) Home Medications Fluoxetine HCl 20 Mg Capsule, 20 MG PO HS, (Reported) Norgestimate-Ethinyl Estradiol 1 Each Tablet, 1 EACH PO DAILY, (Reported) Oxycodone HCl/Acetaminophen 1 Each Tablet, 1-2 TAB PO Q4H PRN for PAIN Prescribed by: ANISHA MAGUIRE on 02/12/17 1304 Patient Home Medication List Home Medication List Reviewed: Yes Review of Systems Review of Systems Constitutional: see HPI; No chills, No fever Skin: see HPI, other (laceration to left thumb) All Other Systems Reviewed Negative Unless Noted: Yes Past Vhfyeba-Vouume-Huykje Hx Past Med/Social Hx: Reviewed Nursing Past Med/Soc Hx Patient Social History Alcohol Use: Denies Use Recreational Drug Use: No Smoking Status: Never a Smoker 2nd Hand Smoke Exposure: No Recent Foreign Travel: No Contact w/Someone Who Travel: No Recent Infectious Disease Expo: No Recent Hopitalizations: No Physical Abuse: No Sexual Abuse: No Mistreated: No Fear: No Immunizations Up To Date Tetanus Booster (TDap): Unknown PED Vaccines UTD: Yes Date of Influenza Vaccine: Apr 05, 2016 Seasonal Allergies Seasonal Allergies: No Past Medical History Surgeries: Yes (D&C) Gallbladder, Tonsillectomy, Tubal Ligation Respiratory: No Cardiac: No Neurological: No : No Last Menstrual Period: Oct 01, 2018 Reproductive Disorders: Yes (DUB) Female Reproductive Disorders: 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 Sexually Transmitted Disease: No Genitourinary: No Kidney Infection, UTI-Chronic Gastrointestinal: No Musculoskeletal: No Endocrine: No HEENT: No Loss of Vision: Denies Cancer: No Psychosocial: Yes Depression Integumentary: No Blood Disorders: No Adverse Reaction/Blood Tranf: No Family Medical History Reviewed Nursing Family Hx Cardiovascular disease MATERNAL GRANDMOTHER Congenital disease G8 SISTER Congenital heart disease G8 SISTER Diabetes mellitus MATERNAL GRANDMOTHER Hypercholesterolemia MATERNAL GRANDMOTHER Hypertension MATERNAL GRANDMOTHER Myocardial infarction MATERNAL GRANDMOTHER No Pertinent Family Hx Physical Exam Vital Signs Vital Signs - First Documented 10/06/18 17:42 Temp 98.1 Pulse 97 Resp 16 B/P (MAP) 137/95 (109) Pulse Ox 100 O2 Delivery Room Air Capillary Refill : Less Than 3 Seconds General Appearance: WD/WN, no apparent distress Respiratory: chest non-tender, lungs clear, normal breath sounds, no respiratory distress, no accessory muscle use Gastrointestinal: normal bowel sounds, non tender, soft, no organomegaly, no pulsatile mass Skin: normal color, warm/dry Skin Problem Location: upper extremities (left thumb monte surface) Skin Problem Character: linear (1cm laceration superficial) Lymphatic: no adenopathy Procedures/Interventions Wound Location: Upper Extremities Other Wound Location left thumb monte surface 1cm Wound's Depth, Shape: superficial Irrigated w/ Saline (ccs): 100 Betadine Prep?: Yes (betasept) Other Closure Supply: Wound Adhesive Progress The wound was thoroughly cleaned and irrigated with normal saline and Betasept. The wound was approximated and closed with skin affix. Patient tolerated procedure well. Progress/Results/Core Measures Results/Orders My Orders Orders - BERNOT,AIDA Dipht,Pertuss(Acell),Tet Adult (Boostrix (10/06/18 18:15) Medications Given in ED Vital Signs/I&O 10/06/18 10/06/18 17:42 18:46 Temp 98.1 98.1 Pulse 97 97 Resp 16 16 B/P (MAP) 137/95 (109) 137/95 (109) Pulse Ox 100 100 O2 Delivery Room Air Blood Pressure Mean: 109 Departure Impression Primary Impression: Laceration Disposition: 01 HOME, SELF-CARE Condition: Stable/Unchanged Departure-Patient Inst. Decision time for Depature: 18:29 Referrals: NO,LOCAL PHYSICIAN (PCP/Family) Primary Care Physician Patient Instructions: Laceration Repair With Glue (DC) Add. Discharge Instructions: Watch for signs of infection such as increased redness, swelling, drainage, pain. Follow-up with her primary care provider as needed. Let the glue fall off on his own. Try to avoid using soaps or lotions or ointments directly to the glue area as this will cause it to detach before it is time. Return back to the emergency room for worsening symptoms or concerns as needed. All discharge instructions reviewed with patient and/or family. Voiced understanding. Work/School Note: Work Release Form Date Seen in the Emergency Department: Oct 06, 2018 Return to Work: Oct 07, 2018 Restrictions: No Restrictions Other Restrictions Listed Below: May return to work tomorrow 10/07/18. AIDA CHAPPELL Oct 06, 2018 18:31
[2018-10-06 18:46] VITALS: BP 137/95
== END 2018-10-06 18:47 | disposition home or self-care (01) ==
LOC: EDUNIT# 17:36 → ER 17:37
DX: S61.012A Laceration without foreign body of left thumb without damage to nail, initial encounter (principal); F32.9 Major depressive disorder, single episode, unspecified; Z23 Encounter for immunization; Z98.51 Tubal ligation status; Z87.440 Personal history of urinary (tract) infections; Z90.89 Acquired absence of other organs; Z82.49 Family history of ischemic heart disease and other diseases of the circulatory system; W26.8XXA Contact with other sharp object(s), not elsewhere classified, initial encounter
CPT/HCPCS: 12001; 90471; 90715

== ENCOUNTER 2023-01-06 09:10 | Emergency (ER) | payer SELFPAY ==
[~2023-01-06] VITALS: Ht 152 cm; Wt 65.7 kg
[~2023-01-06 09:10] MED LIST changes: +ACET-11 PO; -ACET1TAB43 PO; -OXYC-465 PO; +OXYC-556 PO
[2023-01-06] MEDS ORDERED: PHEN1SUP92 RC (09:45)
--- NOTE | 2023-01-06 09:45 | ED GI ---
General Chief Complaint: Abdominal/GI Problems Stated Complaint: BLOOD IN STOOL Source of Information: Patient History of Present Illness Date Seen by Provider: Jan 06, 2023 Time Seen by Provider: 09:40 Initial Comments 32-year-old female presents with concerns of a couple of episodes of bright red blood per rectum yesterday. States he has not had any today. She does have intermittent lower abdominal pain but states she is on an antibiotic for UTI currently. No history of seizures no hematemesis again no abdominal distention or bloating states there was blood in the stool but this was painless. She has not had any episodes since then. She states she has been constipated lately. No fever no history of GI bleeding Timing/Duration: 1-2 Days Severity/Quality: Mild Associated Symptoms: Denies Symptoms Allergies and Home Medications Allergies Coded Allergies: No Known Drug Allergies (Verified , 09/03/06) Patient Home Medication List Home Medication List Reviewed: Yes Fluoxetine HCl (Prozac) 20 Mg Capsule, 20 MG PO HS, (Reported) Entered as Reported by: SHARON PARMAR on 02/06/17 1406 Norgestimate-Ethinyl Estradiol (Sprintec 28 Day Tablet) 1 Each Tablet, 1 EACH PO DAILY, (Reported) Entered as Reported by: SHARON PARMAR on 02/06/17 1406 Oxycodone HCl/Acetaminophen (Percocet 10-325 mg Tablet) 1 Each Tablet, 1-2 TAB PO Q4H PRN for PAIN Prescribed by: ANISHA MAGUIRE on 02/12/17 1304 Review of Systems Review of Systems Constitutional: no symptoms reported EENTM: No Symptoms Reported Respiratory: No Symptoms Reported Cardiovascular: No Symptoms Reported Gastrointestinal: See HPI, Abdominal Pain (Intermittent), Constipated, Rectal Bleeding Genitourinary: No Symptoms Reported Skin: no symptoms reported Psychiatric/Neurological: No Symptoms Reported Endocrine: No Symptoms Reported Hematologic/Lymphatic: No Symptoms Reported All Other Systems Reviewed Negative Unless Noted: Yes Past Epxopgh-Zbrlyc-Kipaeq Hx Patient Social History Tobacco Use?: No Smoking Status: Former Smoker Substance use?: No Alcohol Use?: No Pt feels they are or have been: No Immunizations Up To Date Tetanus Booster (TDap): Unknown PED Vaccines UTD: Yes Seasonal Allergies Seasonal Allergies: No Past Medical History Surgery/Hospitalization HX: ENDOMETRIOSIS APURVA, TUBAL, TONSILS, D&C Surgeries: Yes (D&C) Gallbladder, Tonsillectomy, Tubal Ligation Respiratory: No Cardiac: No Neurological: No Reproductive Disorders: Yes (DUB) Female 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 Sexually Transmitted Disease: No Genitourinary: No Kidney Infection, UTI-Chronic Gastrointestinal: No Musculoskeletal: No Endocrine: No HEENT: No Loss of Vision: Denies Cancer: No Psychosocial: Yes Depression Integumentary: No Blood Disorders: No Adverse Reaction/Blood Tranf: No Family Medical History Cardiovascular disease MATERNAL GRANDMOTHER Congenital disease G8 SISTER Congenital heart disease G8 SISTER Diabetes mellitus MATERNAL GRANDMOTHER Hypercholesterolemia MATERNAL GRANDMOTHER Hypertension MATERNAL GRANDMOTHER Myocardial infarction MATERNAL GRANDMOTHER No Pertinent Family Hx Physical Exam Vital Signs Capillary Refill : Height/Weight/BMI Height: 5'1.00" Weight: 156lbs. 0.0oz. 70.150873qh; 37.0 BMI Method:Stated General Appearance: WD/WN, no apparent distress HEENT: PERRL/EOMI, normal ENT inspection Neck: non-tender, full range of motion Respiratory: chest non-tender, normal breath sounds Cardiovascular: regular rate, rhythm Gastrointestinal: non tender, soft Rectal: normal exam, normal rectal tone, heme positive stool (Trace), other (Hard stool in rectal vault) Extremities: normal range of motion, non-tender Back: normal inspection Neurologic/Psychiatric: alert, normal mood/affect, oriented x 3 Skin: normal color, warm/dry Progress/Results/Core Measures Progress Progress Note : Progress Note Patient is in no distress no evidence of blood loss anemia no history of blood loss anemia no history of GI bleeding or GI disease such as IBS, IBD Crohn's or ulcerative colitis. States she has had some recent constipation and is currently being treated for urinary tract infection that does give her intermittent suprapubic discomfort. 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 She states not as much today she is asymptomatic currently. She states this was painless and it was brief. No known history of external hemorrhoids no known history of internal hemorrhoids she has had many children vaginally. No weakness or dizziness no evidence of blood loss or intra-abdominal significant pathology. Rectal exam showed normal tone hard formed stool in the rectal vault trace pos itive for blood. Discussed plan to place on steroid suppositories to treat for internal hemorrhoids as well as incorporate dissolvable fiber into her diet and see if this does not alleviate her symptoms. I do not feel a full-blown evaluation for suspected internal hemorrhoids is warranted at this time, patient agrees she does request a work note. Advised return immediately for profuse bleeding rectally, hematemesis, abdominal distention or tenderness or fever or any other significant pathology or symptoms, patient agrees. Advised to hydrate quite well especially while taking fiber, she agrees. Departure Impression Primary Impression: Internal hemorrhoid, bleeding Disposition: HOME, SELF-CARE Condition: Stable Departure-Patient Inst. [facility] [place] Primary Care Physician Patient Instructions: Hemorrhoids ED, Bloody Stools, Adult ED Add. Discharge Instructions: Use suppositories as directed for bleeding. Take dissolvable fiber such as Benefiber or Metamucil at least once daily to help soften stools and prevent any further bleeding per rectum. Contact primary care this week to discuss visit today and determine need for potential colonoscopy. If pain develops or worsens, bleeding worsens, fever develops or any concerns arise please return immediately to the emergency department All discharge instructions reviewed with patient and/or family. Voiced understanding. Scripts Phenylephrine HCl/Woodson Butter (Preparation H Suppository) 0.25 %-88.44 % Supp.rect 1 EACH RC BID for 7 Days, #14 SUPP.RECT Prov: ALEXANDRA XIONG DO 01/06/23 ALEXANDRA XIONG DO Jan 06, 2023 09:45
[2023-01-06 09:57] VITALS: BP 125/78
== END 2023-01-06 09:57 | disposition home or self-care (01) ==
LOC: EDUNIT# 09:10 → ER 09:13
DX: K64.8 Other hemorrhoids (principal); N39.0 Urinary tract infection, site not specified; Z87.891 Personal history of nicotine dependence; Z79.2 Long term (current) use of antibiotics
CPT/HCPCS: 82274